=== PATIENT | female | born 1995 | race Caucasian/White ===

== ENCOUNTER 2018-10-20 14:16 | Emergency (ER) | payer OTHER ==
[2018-10-20 15:20] LABS: Urine Blood TRACE (NEG); Urine Glucose NEGATIVE (NEG); Urine Protein NEGATIVE (NEG); Urine Specific Gravity 1.015 (1.005-1.030)
[2018-10-20 15:59] LABS: Urine Bacteria <20 /HPF (<20); Urine Culture Reflex Order NOT NEEDED; Urine RBC <5 /HPF (NONE SEEN)
--- NOTE | 2018-10-20 16:03 | ER ---
Nurse's Notes [facility] Name: Bacilio Gonzales Age: 22 yrs Sex: Female : 1995 Arrival Date: 10/20/2018 Time: 14:18 Bed 28 Private MD: Diagnosis: Person with feared health complaint in whom no diagnosis is made Presentation: 10/20 14:28 Presenting complaint: Patient states: i was coming back into town, i felt some cramping tw2 like i was going to start my period, i noticed light brown when i wiped, then it was redder but not period blood, there was a little blood clot in the toilet when i got up. i am about 5 weeks appt, just confirmed with OTC test, OB appt nov 06. Transition of care: patient was not received from another setting of care. Onset of symptoms was October 20, 2018. Risk Assessment: Do you want to hurt yourself or someone else? Patient reports no desire to harm self or others. Initial Sepsis Screen: Does the patient meet any 2 criteria? No. Patient's initial sepsis screen is negative. Does the patient have a suspected source of infection? No. Patient's initial sepsis screen is negative. Care prior to arrival: None. 14:28 Method Of Arrival: Ambulatory tw2 14:28 Acuity: TOBIN 3 tw2 Triage Assessment: 14:31 General: Appears in no apparent distress. Behavior is calm, cooperative, appropriate tw2 for age. Pain: Denies pain. : Reports vaginal bleeding that is spotty. 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 - Social history:: Smoking status: Patient/guardian denies using tobacco. - Ebola Screening: : Patient denies travel to an Ebola-affected area in the 21 days before illness onset. Screenin:07 Abuse screen: Denies threats or abuse. Nutritional screening: No deficits noted. em Tuberculosis screening: No symptoms or risk factors identified. Fall Risk None identified. Assessment: 15:07 General: Appears in no apparent distress. comfortable, Behavior is calm, cooperative, em Denies fever. Pain: Complains of pain in pelvis Pain currently is 0 out of 10 on a pain scale. Quality of pain is described as crampy. Neuro: Level of Consciousness is awake, alert, obeys commands, Oriented to person, place, time, situation, Appropriate for age. Cardiovascular: Capillary refill < 3 seconds Patient's skin is warm and dry. Respiratory: Airway is patent Respiratory effort is even, unlabored, Respiratory pattern is regular, symmetrical. GI: Patient currently denies nausea, vomiting. : Reports vaginal bleeding that is bright red, spotty, Denies burning with urination, discharge. Derm: Skin is intact, is healthy with good turgor, Skin is pink, warm \T\ dry. Musculoskeletal: Capillary refill < 3 seconds, Range of motion: intact in all extremities. Vital Signs: 14:30 BP 125 / 88; Pulse 63; Resp 17; Temp 98(TE); Pulse Ox 100% on R/A; Weight 96.62 kg (R); tw2 Height 5 ft. 6 in. (167.64 cm); Pain 0/10; 14:30 Body Mass Index 34.38 (96.62 kg, 167.64 cm) tw2 ED Course: 14:18 Patient arrived in ED. as 14:30 Triage completed. tw2 14:31 Arm band placed on. tw2 14:50 Rodney Garcia LVN is Primary Nurse. em 14:57 Leeanne [facility]uesada [facility]NP-C [facility]. snw 14:57 Fausto Basilio MD is Attending Physician. snw 15:07 Patient has correct armband on for positive identification. Placed in gown. Bed in low em position. Call light in reach. Adult w/ patient. Pulse ox on. NIBP on. 16:23 No provider procedures requiring assistance completed. Patient did not have IV access em during this emergency room visit. Administered Medications: No medications were administered Outcome: 16:02 Discharge ordered by . snw 16:26 Discharged to home ambulatory, with family. em 16:26 Condition: good 16:26 Discharge instructions given to patient, Instructed on discharge instructions, follow up and referral plans. medication usage, Demonstrated understanding of instructions, follow-up care, medications, Prescriptions given X 1. 16:26 Patient left the ED. em Signatures: Leeanne Quesada, SHOOTER HELPER-C SHOOTER HELPER-Csnw Rodney Garcia, PROFESSIONAL HEALTHCARE REPRESENTATIVE PROFESSIONAL HEALTHCARE REPRESENTATIVE Jyotsna Valiente Tara, RN RN tw2
--- NOTE | 2018-10-20 16:04 | EDPHYS ---
Physician Documentation [facility] Name: Bacilio Gonzales Age: 22 yrs Sex: Female : 1995 Arrival Date: 10/20/2018 Time: 14:18 Bed 28 Private MD: ED Physician Fausto Basilio HPI: 10/20 16:06 This 22 yrs old Female presents to ER via Ambulatory with complaints of snw Vaginal Bleeding, + Preg <12wks. 16:06 The patient presents with vaginal bleeding that is spotting, with no clots. Onset: The snw symptoms/episode began/occurred suddenly. Modifying factors: the symptoms are aggravated by urinating. Associated signs and symptoms: Pertinent positives: mild cramping. Severity of symptoms: At their worst the symptoms were very mild. The patient is sexually active, reportedly has a single partner. The patient has not experienced similar symptoms in the past. appt with Tack Maker in 2 weeks. 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 - Social history:: Smoking status: Patient/guardian denies using tobacco. - Ebola Screening: : Patient denies travel to an Ebola-affected area in the 21 days before illness onset. ROS: 16:03 Constitutional: Negative for fever, chills, and weight loss, Eyes: Negative for injury, snw pain, redness, and discharge, ENT: Negative for injury, pain, and discharge, Neck: Negative for injury, pain, and swelling, Cardiovascular: Negative for chest pain, palpitations, and edema, Respiratory: Negative for shortness of breath, cough, wheezing, and pleuritic chest pain, Abdomen/GI: Negative for abdominal pain, nausea, vomiting, diarrhea, and constipation, Back: Negative for injury and pain, : Negative for injury, discharge, and swelling, + vaginal spotting MS/Extremity: Negative for injury and deformity, Skin: Negative for injury, rash, and discoloration, Neuro: Negative for headache, weakness, numbness, tingling, and seizure. Exam: 15:59 Constitutional: This is a well developed, well nourished patient who is awake, alert, snw and in no acute distress. Head/Face: Normocephalic, atraumatic. Eyes: Pupils equal round and reactive to light, extra-ocular motions intact. Lids and lashes normal. Conjunctiva and sclera are non-icteric and not injected. Cornea within normal limits. Periorbital areas with no swelling, redness, or edema. ENT: Nares patent. No nasal discharge, no septal abnormalities noted. Tympanic membranes are normal and external auditory canals are clear. Oropharynx with no redness, swelling, or masses, exudates, or evidence of obstruction, uvula midline. Mucous membranes moist. Neck: Trachea midline, no thyromegaly or masses palpated, and no cervical lymphadenopathy. Supple, full range of motion without nuchal rigidity, or vertebral point tenderness. No Meningismus. Chest/axilla: Normal chest wall appearance and motion. Nontender with no deformity. No lesions are appreciated. Cardiovascular: Regular rate and rhythm with a normal S1 and S2. No gallops, murmurs, or rubs. Normal PMI, no JVD. No pulse deficits. Respiratory: Lungs have equal breath sounds bilaterally, clear to auscultation and percussion. No rales, rhonchi or wheezes noted. No increased work of breathing, no retractions or nasal flaring. Abdomen/GI: Soft, non-tender, with normal bowel sounds. No distension or tympany. No guarding or rebound. No evidence of tenderness throughout. Back: No spinal tenderness. No costovertebral tenderness. Full range of motion. Skin: Warm, dry with normal turgor. Normal color with no rashes, no lesions, and no evidence of cellulitis. MS/ Extremity: Pulses equal, no cyanosis. Neurovascular intact. Full, normal range of motion. Neuro: Awake and alert, GCS 15, oriented to person, place, time, and situation. Cranial nerves II-XII grossly intact. Motor strength 5/5 in all extremities. Sensory grossly intact. Cerebellar exam normal. Normal gait. Psych: Awake, alert, with orientation to person, place and time. Behavior, mood, and affect are within normal limits. Vital Signs: 14:30 BP 125 / 88; Pulse 63; Resp 17; Temp 98(TE); Pulse Ox 100% on R/A; Weight 96.62 kg (R); tw2 Height 5 ft. 6 in. (167.64 cm); Pain 0/10; 14:30 Body Mass Index 34.38 (96.62 kg, 167.64 cm) tw2 MDM: 15:26 Patient medically screened. snw 16:04 Data reviewed: vital signs, nurses notes. Data interpreted: Pulse oximetry: on room air snw is 100 %. Interpretation: normal. Counseling: I had a detailed discussion with the patient and/or guardian regarding: the historical points, exam findings, and any diagnostic results supporting the discharge/admit diagnosis, the presence of at least one elevated blood pressure reading (>120/80) during this emergency department visit, lab results, the need for outpatient follow up, to return to the emergency department if symptoms worsen or persist or if there are any questions or concerns that arise at home. Special discussion: I have referred the patient to see his PCP for further evaluation of high blood pressure. Based on the history and exam findings, there is no indication for further emergent testing or inpatient evaluation. I discussed with the patient/guardian the need to see the OB Gyne specialist for further evaluation of the symptoms. 10/20 15:15 Order name: Urine Dipstick--Ancillary (enter results); Complete Time: 15:23 ss 10/20 15:15 Order name: Urine --Ancillary (enter results); Complete Time: 15:23 ss 10/20 14:40 Order name: Urine Dipstick-Ancillary (obtain specimen); Complete Time: 14:40 tw2 10/20 14:40 Order name: Urine Test (obtain specimen); Complete Time: 14:40 tw2 10/20 15:36 Order name: Urine Microscopic Only; Complete Time: 16:01 snw Administered Medications: No medications were administered Disposition: 10/20/18 16:02 Discharged to Home. Impression: Person with feared health complaint in whom no diagnosis is made. - Condition is Stable. - Discharge Instructions: Threatened Miscarriage, Vaginal Bleeding During , First Trimester, Eating Plan for Women. - Prescriptions for Vitamin 27- 0.8 mg Oral Tablet - take 1 tablet by ORAL route once daily; 60 tablet. - Medication Reconciliation Form, Thank You Letter, Antibiotic Education, Prescription Opioid Use form. - Follow up: Private Physician; When: 2 - 3 days; Reason: Recheck today's complaints, Continuance of care, Re-evaluation by your physician. Follow up: Emergency Department; When: As needed; Reason: Worsening of condition. Addendum: 10/22/2018 15:36 Co-signature as Attending Physician, Fausto Basilio MD. g s Signatures: Dispatcher [employer] EDMS Leeanne Quesada, FORKLIFT WHEEL LOADER-C FORKLIFT WHEEL LOADER-Csnw Rodney Garcia, RECORDER HELPER GRAVITY PROSPECTING RECORDER HELPER GRAVITY PROSPECTING em Jacquie Browning, RN RN tw2 Fausto Basilio MD MD Corrections: (The following items were deleted from the chart) 10/20 16:26 16:02 10/20/2018 16:02 Discharged to Home. Impression: Person with feared health em complaint in whom no diagnosis is made. Condition is Stable. Forms are Medication Reconciliation Form, Thank You Letter, Antibiotic Education, Prescription Opioid Use. Follow up: Private Physician; When: 2 - 3 days; Reason: Recheck today's complaints, Continuance of care, Re-evaluation by your physician. Follow up: Emergency Department; When: As needed; Reason: Worsening of condition. snw
== END 2018-10-20 16:26 | disposition home or self-care (01) ==
LOC: ER 14:16
DX: Z71.1 Person with feared health complaint in whom no diagnosis is made (principal); O99.281 Endocrine, nutritional and metabolic diseases complicating pregnancy, first trimester; E03.9 Hypothyroidism, unspecified; Z3A.01 Less than 8 weeks gestation of pregnancy
CPT/HCPCS: 81003; 81015; 81025; 99283